=== PATIENT | female | born 1975 | race American Indian/Alaskan Native ===

== ENCOUNTER 2017-12-25 05:42 | Inpatient (IN) | payer SELFPAY ==
[2017-12-25] MEDS: LACTATED RINGERS 1,000 ML IV SCH ×3 (06:00→08:30)
[2017-12-25] MEDS ORDERED: LACTATED RINGERS 1,000 ML ONE (06:17)
[2017-12-25 07:08] LABS: Hematocrit 34.4 % (30.3-42.9); Mean Corpuscular HGB Conc 32 % (30-34); Mean Corpuscular Hemoglobin 23 pg (28-32); Mean Corpuscular Volume 72 fl (79-97); Platelet Count 138 K/mm3 (140-440); Red Blood Count 4.78 M/mm3 (3.65-5.03); Red Cell Distribution Width 16.3 % (13.2-15.2)
[2017-12-25] MEDS ORDERED: LACTATED RINGERS 1,000 ML IV SCH (08:00)
--- NOTE | 2017-12-25 08:09 | History and Physical Report ---
History of Present Illness Date of examination: 12/25/17 Chief complaint: Primary C Section History of present illness: Pt is a 42yo BF EDC 12/23/17; EGA 40 2/7 weeks presents for a Primary C Section due to previous myomectomy. She received late care from [facility] since 37 weeks after transfer from [facility], and co- managed by [facility] due to IVF and ? IDDM (Pt states she is NOT diabetic and NOT taking any medicine). records are available and GBS is Negative. Past History Past Medical History: diabetes (IDDM) Past Surgical History: myomectomy Family/Genetic History: none Social history: no significant social history, - Obstetrical History Expected Date of Delivery: 12/23/17 Actual Gestation: 40 Week(s) 2 Day(s) : 2 Medications and Allergies Allergies Allergy/AdvReac Type Severity Reaction Status Date / Time No Known Allergies Allergy Verified 12/25/17 06:39 Home Medications Medication Instructions Recorded Confirmed Last Taken Type Ferrous Sulfate [Iron] 325 mg PO BID 12/25/17 12/25/17 12/24/17 History Vitamin 1 tab PO QDAY 12/25/17 12/25/17 12/24/17 History Active Meds: Active Medications Lactated Ringer's (Lactated Ringers) 1,000 mls @ 999 mls/hr IV DIRECT IZZY Review of Systems All systems: negative - Vital Signs Vital signs: Vital Signs Temp Resp 98.4 F 20 12/25/17 06:57 12/25/17 06:57 Temp Pulse Resp BP Pulse Ox 98.4 F 99 H 20 134/91 99 12/25/17 06:57 12/25/17 07:05 12/25/17 06:57 12/25/17 07:00 12/25/17 07:05 - Physical Exam Breasts: Positive: deferred Cardiovascular: Regular rate Lungs: Positive: Clear to auscultation Abdomen: Positive: normal appearance Genitourinary (Female): Positive: normal external genitalia Vagina: Positive: normal moisture Uterus: Positive: enlarged Extremities: Positive: normal - Obstetrical FHR: category 1 Uterine Contraction Monitor Mode: External Results Result Diagrams: 12/25/17 06:10 Abnormal lab results 12/25/17 Range/Units 06:10 MCV 72 L (79-97) fl MCH 23 L (28-32) pg RDW 16.3 H (13.2-15.2) % Plt Count 138 L (140-440) K/mm3 All other labs normal. Assessment and Plan - Patient Problems (1) 40 weeks gestation of Onset Date: 12/25/17 Current Visit: Yes Status: Acute Plan to address problem: A: IUP @ 40 2/7 weeks History of myomectomy ? GDM P: Admit to L&D for a Primary C Section Monitor BS's (2) History of myomectomy Onset Date: 12/25/17 Current Visit: Yes Status: Acute
[2017-12-25] MEDS ORDERED: ZOFRAN IV PRN (08:13)
[2017-12-25] MEDS ORDERED: BENADRYL IV PRN (08:13)
[2017-12-25] MEDS ORDERED: NARCAN 0.4 MG/1 ML IV PRN ×2 (08:13→10:29)
[2017-12-25] MEDS ORDERED: PHENERGAN PR PRN (08:13)
[2017-12-25] MEDS ORDERED: PHENERGAN PO PRN (08:13)
--- NOTE | 2017-12-25 08:13 | Anesthesia Consultation ---
Anesthesia Consult and Med Hx Date of service: 12/25/17 - Airway Anesthetic Teeth Evaluation: Good ROM Head & Neck: Adequate Mental/Hyoid Distance: Adequate Mallampati Class: Class II Intubation Access Assessment: Probably Good - Pre-Operative Health Status ASA Pre-Surgery Classification: ASA2 Proposed Anesthetic Plan: Epidural, Spinal - Pulmonary Hx Asthma: No COPD: No Hx Pneumonia: No - Cardiovascular System Hx Hypertension: No - Central Nervous System Hx Seizures: No Hx Psychiatric Problems: No - Endocrine Hx Renal Disease: No Hx End Stage Renal Disease: No Hx Hypothyroidism: No Hx Hyperthyroidism: No - Hematic Hx Anemia: Yes Hx Sickle Cell Disease: No - Other Systems Hx Alcohol Use: No Hx Obesity: Yes (BMI 37.0) - Additional Comments Anesthesia Medical History Comments: s/p myomectomy. Primary
--- NOTE | 2017-12-25 08:13 | Anesthesia Day of Surgery ---
Anesthesia Day of Surgery - Day of Surgery Patient Examined: Yes Patient H&P Reviewed: Yes Patient is NPO: Yes
[2017-12-25] MEDS ORDERED: BICITRA ONE (08:14)
[2017-12-25] MEDS ORDERED: TORADOL IV PRN (08:14)
[2017-12-25] MEDS ORDERED: PEPCID IV ONE ×2 (08:15→09:00)
[2017-12-25] MEDS ORDERED: ANCEF/STERILE WATER 2 GM/20 ML 2 GM/20 ML SYRINGE IV ONE (08:15)
[2017-12-25] MEDS ORDERED: BICITRA PO ONE (09:00)
[2017-12-25] MEDS ORDERED: REGLAN IV ONE (09:00)
[2017-12-25] MEDS ORDERED: SODIUM CHLORIDE FLUSH SYRINGE 10 ML IV NR ×2 (09:00→11:00)
[2017-12-25] MEDS ORDERED: ANCEF/STERILE WATER 2 GM/20 ML 2 GM/20 ML SYRINGE IV NR (09:00)
[2017-12-25] MEDS ORDERED: ANCEF/STERILE WATER 2 GM/20 ML IV ONE (09:05)
[2017-12-25] MEDS ORDERED: NEO SYNEPHRINE/NS Syringe(OR USE) IV ONE ×3 (09:08→10:31)
[2017-12-25] MEDS ORDERED: WATER FOR IRRIG STERILE IR ONE (09:15)
[2017-12-25] MEDS ORDERED: NACL 0.9% IR ONE (09:15)
[2017-12-25] MEDS: PITOCin/NS 20 UNIT/1000ML DRIP 20 UNITS/1,000 ML BAG IV SCH ×3 (09:30→12:35)
[2017-12-25] MEDS ORDERED: MORPHINE ONE (09:53)
[2017-12-25] MEDS ORDERED: MILK OF MAGNESIA PO PRN (10:29)
[2017-12-25] MEDS ORDERED: NORCO 5/325 PO PRN (10:29)
[2017-12-25] MEDS ORDERED: PERCOCET 5/325 PO PRN (10:29)
[2017-12-25] MEDS ORDERED: TYLENOL PO PRN (10:29)
[2017-12-25] MEDS ORDERED: TUCKS PAD TP PRN (10:29)
[2017-12-25] MEDS ORDERED: LANSINOH TP PRN (10:29)
[2017-12-25] MEDS ORDERED: SENOKOT PO PRN (10:29)
[2017-12-25] MEDS ORDERED: MYLICON PO PRN (10:29)
[2017-12-25] MEDS ORDERED: METHERGINE IM ONE (10:39)
[2017-12-25] MEDS: DILAUDID IV PRN ×2 (11:00→12:00)
[2017-12-25] MEDS ORDERED: D5LR 1,000 ML IV SCH (11:00)
[2017-12-25] MEDS ORDERED: PITOCin/NS 20 UNIT/1000ML DRIP 20 UNITS/1,000 ML BAG IV SCH (11:00)
--- NOTE | 2017-12-25 11:03 | Operative Report ---
Operative Report Operative Report: Date of procedure: 12/25/2017 Pre-operative diagnosis: 1. Intrauterine at 40-2/7 weeks 2. History of myomectomy 3. Suspected gestational diabetes mellitus Post-operative diagnosis: Same with 4. Breech presentation 5. Multiple uterine fibroids 6. Thick meconium amniotic fluid 7. Extensive lower uterine segment adhesions Procedure name(s): Primary low transverse section Surgeon: Mac Davila MD [employer] Maintenance Technician: None Anesthesia: Spinal epidural anesthesia by Dr. Weston EBL: 800 mls Findings: A 4182 g female infant Apgars 4 at 1 minute and 9 at 5 minutes. Thick meconium amniotic fluid. Double footling breech presentation. Multiple uterine fibroids. Extensive lower uterine segment adhesions. Procedure: After the patient was prepped and draped in usual sterile fashion, and after satisfactory level of epidural anesthesia was obtained, the skin knife was used to make a transverse skin incision through the previous skin scar. The incision was excised down to layer of the fascia, which was nicked in the midline and extended laterally using the Bovie cautery. The rectus muscles were dissected off the rectus fascia both superiorly and inferiorly. The rectus bellies in the midline, and the peritoneum was entered under direct visualization. The peritoneal incision was extended superiorly and inferiorly. A bladder flap was created and the bladder blade was then placed. Extensive lower uterine adhesions were taken down using both sharp and blunt dissection. The uterus was scored in a curvilinear linear fashion, entered in the midline revealing thick meconium amniotic fluid. The 's double footling breech was delivered onto the surgical field the rest of the infant's body was delivered, cord was doubly clamped and cut and the was handed to the waiting respiratory team. Cord gas and cord blood was then obtained. The placenta was manually removed from the uterus, but the uterus could not be removed from its normal anatomical position due to large uterine fibroids. After gentle uterine lavage, the incision was inspected and found to be without extensions. It was then closed in 2 layers using 0 Vicryl suture in a running interlocking fashion, the second layer imbricating the first. After good hemostasis was achieved, copious amounts or irrigation was performed, and the gutters were suctioned free of blood and blood clots. Tisseel sealant was sprayed across the uterine incision, and after excellent hemostasis assured, the peritoneum was re-approximated using 3-0 Vicryl suture in a running interlocking fashion, and then the rectus muscles were re-approximated using 3- 0 Vicryl suture in a [id number] configuration. The fascia was then re- approximated using 0 Vicryl suture in running interlocking fashion. The subcutaneous layer was made hemostatic using Bovie cautery, the Tisseel sealant was sprayed across the fascial incision and the skin edges re-approximated using 4-0 Vicryl suture in a sub-cuticular fashion. Patient tolerated the procedure well was transported to recovery in stable condition.
[2017-12-25] MEDS: ANCEF/NS 1 GM/50 ML 1 GM/50 ML BAG IV SCH (18:10)
[2017-12-25] MEDS: METHERGINE PO SCH ×2 (18:37→22:37)
[2017-12-25 22:51] LABS: Hematocrit 24.7 % (30.3-42.9); Hemoglobin 8.1 gm/dl (10.1-14.3)
[2017-12-26] MEDS: ANCEF/NS 1 GM/50 ML 1 GM/50 ML BAG IV SCH (02:06)
[2017-12-26] MEDS ORDERED: M-M-R II VACCINE SUB-Q ONE (06:00)
[2017-12-26] MEDS ORDERED: BOOSTRIX IM ONE (06:00)
[2017-12-26] MEDS: METHERGINE PO SCH ×3 (06:33→21:29)
[2017-12-26] MEDS: PRENATAL VITAMIN PO SCH (14:15)
[2017-12-26] MEDS: FEOSOL PO SCH (14:15)
--- NOTE | 2017-12-26 14:15 | Progress Note ---
Assessment and Plan - Patient Problems (1) 40 weeks gestation of Onset Date: 12/25/17 Current Visit: Yes Status: Resolved (2) History of myomectomy Onset Date: 12/25/17 Current Visit: Yes Status: Resolved (3) Status post Onset Date: 12/26/17 Current Visit: Yes Status: Resolved Plan to address problem: A: S/P C Section - POD #1 Doing well Acute blood loss anemia - stable Asymptomatic anemia - stable P: Continue RPOC Anticipate discharge in 24-48hrs Repeat H/H (4) Acute blood loss anemia Onset Date: 12/26/17 Current Visit: Yes Status: Resolved Subjective - Subjective Date of service: 12/26/17 Principal diagnosis: s/p C Section - POD #1 Interval history: Pt is feeling well without complaints. Bleeding has improved. Patient reports: appetite normal, voiding normally, pain well controlled, flatus , ambulating normally, no dizzy ambulation, no nauseated [place]: doing well, nursing well Objective - Vital Signs Latest vital signs: Vital Signs Temp Pulse Resp BP BP Pulse Ox 12/26/17 14:12 20 12/26/17 07:58 98.7 F 96 H 18 119/82 12/26/17 04:05 98.4 F 95 H 18 116/80 12/26/17 00:05 98.1 F 98 H 18 119/78 99 12/25/17 19:55 98.3 F 103 H 18 120/88 99 12/25/17 16:00 98.6 F 112 H 20 108/70 99 12/25/17 15:43 106 H 97 12/25/17 15:38 103 H 96 12/25/17 15:33 108 H 97 12/25/17 15:28 110 H 99 12/25/17 15:27 108 H 119/83 12/25/17 15:23 102 H 97 12/25/17 15:18 108 H 99 12/25/17 15:13 107 H 99 12/25/17 15:08 105 H 97 12/25/17 15:03 105 H 99 12/25/17 14:58 105 H 98 12/25/17 14:57 101 H 116/82 12/25/17 14:53 100 H 99 12/25/17 14:48 107 H 98 12/25/17 14:43 104 H 99 12/25/17 14:38 107 H 99 12/25/17 14:33 107 H 100 12/25/17 14:28 105 H 99 12/25/17 14:27 104 H 117/75 12/25/17 14:23 105 H 99 12/25/17 14:18 100 H 100 Intake and Output 12/25/17 12/26/17 12/26/17 22:59 06:59 14:59 Intake Total 930 120 Output Total 250 Balance 930 -250 120 Intake: IV 50 ANCEF/NS 1 GM/50 ML 1 gm 50 In 50 ml @ 100 mls/hr IV Q8H IZZY Rx#:[id number] Oral 880 120 Output: Urine 250 Void 250 Other: Total, Intake Amount 240 120 Total, Output Amount 250 # Voids Indwelling Catheter 225 - Exam Breasts: Present: deferred Cardiovascular: Present: Regular rate Lungs: Present: Clear to auscultation Abdomen: Present: normal appearance, soft Uterus: Present: normal, firm, fundal height below umbilicus Extremities: Present: normal Incision: Present: normal, dry, intact, dressed - Labs Labs: Abnormal lab results 12/25/17 Range/Units 22:34 Hgb 8.1 L (10.1-14.3) gm/dl Hct 24.7 L D (30.3-42.9) % Laboratory Tests 12/25/17 12/25/17 12/25/17 06:10 06:10 06:10 WBC 4.7 RBC 4.78 Hgb 11.0 Hct 34.4 MCV 72 L MCH 23 L MCHC 32 RDW 16.3 H Plt Count 138 L POC ABG pH POC ABG pCO2 POC ABG pO2 POC ABG HCO3 POC ABG Total CO2 POC ABG O2 Sat POC ABG Base Excess FiO2 POC Glucose RPR Nonreactive Hep Bs Antigen Non-reactive HIV 1&2 Antibody Rapid Non react HIV P24 Antigen Non react Blood Type Antibody Screen 12/25/17 12/25/17 12/25/17 06:10 09:07 10:14 WBC RBC Hgb Hct MCV MCH MCHC RDW Plt Count POC ABG pH 7.100 L POC ABG pCO2 75.1 H POC ABG pO2 < 5 L POC ABG HCO3 23.3 POC ABG Total CO2 26 POC ABG O2 Sat TNR POC ABG Base Excess -6 FiO2 21 POC Glucose 104 RPR Hep Bs Antigen HIV 1&2 Antibody Rapid HIV P24 Antigen Blood Type O POSITIVE Antibody Screen Negative 12/25/17 12/25/17 10:18 22:34 WBC RBC Hgb 8.1 L Hct 24.7 L D MCV MCH MCHC RDW Plt Count POC ABG pH 7.188 L POC ABG pCO2 61.6 H POC ABG pO2 11 L POC ABG HCO3 23.4 POC ABG Total CO2 25 POC ABG O2 Sat 7 POC ABG Base Excess -5 FiO2 21 POC Glucose RPR Hep Bs Antigen HIV 1&2 Antibody Rapid HIV P24 Antigen Blood Type Antibody Screen
[2017-12-26 15:13] LABS: Hematocrit 24.4 % (30.3-42.9); Hemoglobin 7.7 gm/dl (10.1-14.3)
[2017-12-26] MEDS: MOTRIN PO PRN (21:29)
[2017-12-27] MEDS: MOTRIN PO PRN (05:46)
[2017-12-27] MEDS ORDERED: BOOSTRIX IM ONE (06:00)
--- NOTE | 2017-12-27 08:01 | Progress Note ---
Assessment and Plan - Patient Problems (1) 40 weeks gestation of Onset Date: 12/25/17 Current Visit: Yes Status: Resolved (2) History of myomectomy Onset Date: 12/25/17 Current Visit: Yes Status: Resolved (3) Status post Onset Date: 12/26/17 Current Visit: Yes Status: Resolved Plan to address problem: A: S/P C Section - POD #2 Doing well Acute blood loss anemia - stable Asymptomatic anemia - stable P: May go home today. Subjective - Subjective Date of service: 12/27/17 Principal diagnosis: s/p C Section - POD #2 Interval history: Pt is feeling well without complaints. She is tolerating a reg diet diet without nausea or vomiting, ambulating and voiding without difficulty. Patient reports: appetite normal, voiding normally, pain well controlled, flatus , ambulating normally, no dizzy ambulation, no nauseated [place]: doing well, in NICU Objective - Vital Signs Latest vital signs: Vital Signs Temp Pulse Resp BP BP Pulse Ox 12/27/17 05:46 18 12/27/17 01:37 97.6 F 87 20 115/77 97 12/26/17 21:29 18 12/26/17 16:00 98.3 F 94 H 18 145/72 12/26/17 14:12 20 Intake and Output 12/26/17 12/27/17 12/27/17 22:59 06:59 14:59 Intake Total 520 240 Balance 520 240 Intake: Oral 520 240 Other: Total, Intake Amount 120 240 # Voids Void 1 1 - Exam Cardiovascular: Present: Regular rate Lungs: Present: Clear to auscultation Abdomen: Present: normal appearance, soft Uterus: Present: normal, firm, fundal height below umbilicus Extremities: Present: normal Incision: Present: normal, dry, intact - Labs Labs: Abnormal lab results 12/26/17 Range/Units 14:40 Hgb 7.7 L (10.1-14.3) gm/dl Hct 24.4 L (30.3-42.9) %
[2017-12-27 08:14] VITALS: BP 131/78
[2017-12-27] MEDS: FEOSOL PO SCH (09:56)
[2017-12-27] MEDS: PRENATAL VITAMIN PO SCH (09:56)
--- NOTE | 2017-12-27 11:11 | Discharge Summary ---
Providers - Providers Date of Admission: 12/25/17 05:43 Date of discharge: 12/27/17 Attending physician: KVNG LEWIS Primary care physician: KVNG LEWIS Hospitalization Reason for admission: section, IUP at term Delivery: Procedure: section, primary low transverse Episiotomy: none Laceration: none Incision: normal, dry, intact Other procedures: none complications: none Discharge diagnosis: IUP at term delivered [place] baby: female Hospital course: Pt is a 42yo BF EDC 12/23/17; EGA 40 2/ weeks who presented for a Primary C Section due to previous myomectomy. She underwent an uncomplicated C Section and tolerated the procedure well. Post operative course was unremarkable and by POD #2 she was tolerating a reg diet without nausea or vomiting, ambulating and voiding without difficulty. She was therefore discharged to home on POD #2 in stable condition. Condition at discharge: Good Disposition: DC-01 TO HOME OR SELFCARE - Discharge Diagnoses (1) 40 weeks gestation of Status: Resolved (2) History of myomectomy Status: Resolved (3) Status post Status: Resolved Plan - Discharge Medications Prescriptions: Ferrous Sulfate [Feosol 325 MG tab] 325 mg PO BID #60 tablet HYDROcodone/APAP 5-325 [[place] 5/325] 1 each PO Q6HR PRN #30 tablet PRN Reason: Pain Ibuprofen [Motrin] 800 mg PO Q8HR PRN #30 tablet PRN Reason: Moder Pain Unrelieved By [place] Vit Calc,Iron,Folic [ Vitamins] 1 each PO DAILY #30 tablet - Provider Discharge Summary Activity: routine, no sex for 6 weeks, no heavy lifting 4 weeks, no strenuous exercise Diet: routine Instructions: routine Additional instructions: [] Smoking cessation referral if applicable(refer to patient education folder for contact #) [] Refer to [facility] Booklet Call your doctor immediately for: * Fever > 100.5 * Heavy vaginal bleeding ( >1 pad per hour) * Severe persistent headache * Shortness of breath * Reddened, hot, painful area to leg or breast * Drainage or odor from incision. * Keep incision clean and dry at all times and follow doctor's instructions regarding bathing/showering - Follow up plan Follow up: KVNG LEWIS MD [Primary Care Provider] - 14 Days JM-JAMIR,SUZANNA A, CNM [Advanced Practice Nurse] - 14 Days
== END 2017-12-27 17:00 | disposition home or self-care (01) | DRG 765 ==
LOC: TRG 05:42 → APU 05:43 → TRG 05:45 → OB 15:49
PROVIDERS: ADMIT Obstetrics & Gynecology; ATTEND Obstetrics & Gynecology
PROC: 10D00Z1 Extraction of Products of Conception, Low, Open Approach (ICD-10-PCS; principal; 2017-12-25)
PROC: 4A033R1 Measurement of Arterial Saturation, Peripheral, Percutaneous Approach (ICD-10-PCS; 2017-12-25)
PROC: 3E0234Z Introduction of Serum, Toxoid and Vaccine into Muscle, Percutaneous Approach (ICD-10-PCS; 2017-12-26)
DX: O34.29 Maternal care due to uterine scar from other previous surgery (principal); O24.12 Pre-existing type 2 diabetes mellitus, in childbirth; D62 Acute posthemorrhagic anemia; Z3A.40 40 weeks gestation of pregnancy; Z37.0 Single live birth; Z23 Encounter for immunization; O99.214 Obesity complicating childbirth; Z68.37 Body mass index [BMI] 37.0-37.9, adult; O32.8XX0 Maternal care for other malpresentation of fetus, not applicable or unspecified; O34.13 Maternal care for benign tumor of corpus uteri, third trimester; D25.9 Leiomyoma of uterus, unspecified; O99.89 Other specified diseases and conditions complicating pregnancy, childbirth and the puerperium; O77.0 Labor and delivery complicated by meconium in amniotic fluid; E66.9 Obesity, unspecified; N73.6 Female pelvic peritoneal adhesions (postinfective); O90.81 Anemia of the puerperium; E11.9 Type 2 diabetes mellitus without complications
CPT/HCPCS: 36415; 82803; 82962; 85014; 85018; 85027; 86592; 86706; 86850; 86900; 86901; 87806; 88307; 90715; 99211; C9250; G0463; J0690; J1170; J1885; J2210; J2270; J2370; J2405; J2590; J2765; J7120